=== PATIENT | female | born 1975 | race Caucasian/White ===

== ENCOUNTER 2020-10-25 13:09 | Outpatient (REF) | payer OTHER, SELFPAY | END 2020-10-25 13:10 | disposition home or self-care (01) | LOC: HO.LAB 13:09 | PROVIDERS: Visit Provider Internal Medicine | DX: Z20.828 Contact with and (suspected) exposure to other viral communicable diseases (principal) | CPT/HCPCS: C9803; U0003 ==

== ENCOUNTER → 2021-01-23 11:09 | Outpatient (BNVA) | payer OTHER, SELFPAY | PROVIDERS: PCP Nurse Practitioner; Visit Provider Surgery Vascular Surgery | DX: I83.11 Varicose veins of right lower extremity with inflammation (principal) | CPT/HCPCS: 99212 ==

== ENCOUNTER 2021-02-07 08:12 | Outpatient (REF) | payer OTHER, SELFPAY ==
--- NOTE | ~2021-02-07 | US_ITS ---
EXAMINATION: RIGHT and LEFT LOWER EXTREMITY VENOUS ULTRASOUND (Reflux Exam) CLINICAL INDICATION: Right lower extremity varicose veins and inflammation COMPARISON: None. TECHNIQUE: Color flow triplex imaging and compression Doppler was performed to evaluate both the deep and the superficial systems bilaterally. To evaluate the superficial system, the examination was performed in the upright position. Color-flow Doppler ultrasound and compression ultrasound were utilized. In addition, maneuvers were utilized to demonstrate reflux. FINDINGS: 1. DEEP VENOUS ULTRASOUND OF THE RIGHT LOWER EXTREMITY: Respiratory variation, normal compression and augmented flow are noted in the right common femoral vein as well as the right popliteal vein and there is no evidence of deep venous thrombosis at these locations. There is no evidence of reflux in the deep system in either the common femoral vein or the popliteal vein. There is no evidence of a Carolina's cyst. 2. SUPERFICIAL ULTRASOUND WITH DOPPLER OF RIGHT LOWER EXTREMITY: The right great saphenous vein at the saphenofemoral junction measures 7 mm, at the mid thigh 2 mm, [id number] 3 mm, [id number] 2 mm, at mid calf 1 mm and at the ankle measures 2 mm. There is right greater saphenous vein reflux seen at the knee only measuring 2 seconds. There is an accessory lateral greater saphenous vein that measures 2 mm and does not demonstrate reflux. The right small saphenous vein measures 2 mm and shows no reflux. There is a [employer] in the proximal calf that measures 3 mm and at demonstrates 2.8 seconds reflux. There are small varicosities in the right distal posterior thigh that demonstrate reflux, maximum 2.3 seconds.. 3. DEEP VENOUS ULTRASOUND OF THE LEFT LOWER EXTREMITY: Respiratory variation, normal compression and augmented flow are noted in the left common femoral vein as well as the left popliteal vein and there is no evidence of deep venous thrombosis at these locations. There is no evidence of reflux in the deep system in either the common femoral vein or the popliteal vein. . There is no evidence of a [place]'s cyst. 4. SUPERFICIAL ULTRASOUND WITH DOPPLER OF LEFT LOWER EXTREMITY: Left great saphenous vein at the saphenofemoral junction measures 6 mm, at the mid thigh 1 mm, [id number] 1 mm, [id number] 2 mm, at mid calf 1 mm and at the ankle measures 1 mm. There is left greater saphenous vein reflux seen at the saphenofemoral junction only measuring 3.2 seconds. There is an accessory lateral greater saphenous vein measures 2 mm and does not demonstrate reflux. The left small saphenous vein measures 1-2 mm and shows no reflux. Is a [employer] in the proximal calf that measures 2 mm and does not demonstrate reflux. US/US venous duplex LE BI IMPRESSION: 1. No evidence of reflux or thrombus in the common femoral veins or popliteal veins bilaterally. 2. Bilateral greater saphenous vein reflux measuring 2 seconds at the right knee and 3.2 seconds at the left saphenofemoral junction. There are varicosities in the right distal posterior thigh that demonstrate reflux. [employer] in the right proximal calf that demonstrates reflux.
== END 2021-02-07 08:13 | disposition home or self-care (01) ==
LOC: HO.US 08:12
PROVIDERS: Visit Provider Surgery Vascular Surgery
DX: I83.893 Varicose veins of bilateral lower extremities with other complications (principal)
CPT/HCPCS: 93970

== ENCOUNTER → 2021-02-20 09:43 | Outpatient (BNVA) | payer OTHER, SELFPAY | PROVIDERS: PCP Nurse Practitioner; Visit Provider Surgery Vascular Surgery | DX: I83.11 Varicose veins of right lower extremity with inflammation (principal) | CPT/HCPCS: 99212 ==

== ENCOUNTER → 2021-03-16 07:44 | Outpatient (BNVA) | payer OTHER, SELFPAY | PROVIDERS: PCP Nurse Practitioner; Visit Provider Surgery Vascular Surgery | DX: I83.11 Varicose veins of right lower extremity with inflammation (principal) | CPT/HCPCS: 37765 ==

== ENCOUNTER → 2021-03-27 09:42 | Outpatient (BNVA) | payer OTHER, SELFPAY | PROVIDERS: PCP Nurse Practitioner; Visit Provider Surgery Vascular Surgery | DX: I83.11 Varicose veins of right lower extremity with inflammation (principal) | CPT/HCPCS: 99212 ==

== ENCOUNTER 2021-08-02 07:14 | Outpatient (REF) | payer OTHER, SELFPAY ==
--- NOTE | ~2021-08-02 | XR_ITS ---
EXAMINATION: XR BOTH KNEES AP STANDING XR RIGHT KNEE, 2 VIEWS CLINICAL INFORMATION: Pain. COMPARISON: Knee radiographs dated 11/18/2019. TECHNIQUE: Standing AP view of both knees and lateral and sunrise views of the right knee. FINDINGS: Right Knee: Mild tricompartmental joint space narrowing with marginal osteophytes and chondrocalcinosis, similar when compared to the prior examination. No acute fracture or dislocation. No new osseous erosion. No significant joint effusion. Left Knee: Mild medial compartment joint space narrowing with tiny marginal osteophytes, unchanged. XR/XR knee RT 2V IMPRESSION: RIGHT KNEE: Mild tricompartmental osteoarthritis and chondrocalcinosis, unchanged. LEFT KNEE: Mild medial compartment osteoarthritis, unchanged.
--- NOTE | ~2021-08-02 | XR_ITS ---
EXAMINATION: XR BOTH KNEES AP STANDING XR RIGHT KNEE, 2 VIEWS CLINICAL INFORMATION: Pain. COMPARISON: Knee radiographs dated 11/18/2019. TECHNIQUE: Standing AP view of both knees and lateral and sunrise views of the right knee. FINDINGS: Right Knee: Mild tricompartmental joint space narrowing with marginal osteophytes and chondrocalcinosis, similar when compared to the prior examination. No acute fracture or dislocation. No new osseous erosion. No significant joint effusion. Left Knee: Mild medial compartment joint space narrowing with tiny marginal osteophytes, unchanged. XR/XR knee standing BI IMPRESSION: RIGHT KNEE: Mild tricompartmental osteoarthritis and chondrocalcinosis, unchanged. LEFT KNEE: Mild medial compartment osteoarthritis, unchanged.
== END 2021-08-02 07:15 | disposition home or self-care (01) ==
LOC: HO.HOSX 07:14
PROVIDERS: Visit Provider Physician Assistant
DX: M11.20 Other chondrocalcinosis, unspecified site (principal); M17.11 Unilateral primary osteoarthritis, right knee
CPT/HCPCS: 20610; 73560; 73565; 99202; J1040

== ENCOUNTER 2022-05-02 06:25 | Outpatient (REF) | payer OTHER, SELFPAY ==
--- NOTE | ~2022-05-02 | XR_ITS ---
EXAMINATION: KNEE X-RAY CLINICAL INFORMATION: Pain COMPARISON: Previous x-ray July 2021 TECHNIQUE: Standing AP view of both knees and lateral and sunrise view of the left knee FINDINGS: Left: Bone alignment is normal. No fracture or dislocation is seen. There is slight lateral tilt to the patella on the sunrise view. There are small osteophytes at the patellofemoral and medial femoral tibial joints. There is no joint effusion. Standing AP view of the right knee demonstrates chondrocalcinosis. XR/XR knee standing BI IMPRESSION: Left knee: Small osteophytes at the patellofemoral and medial femoral tibial joints with slight lateral tilt of the patella. Right knee: Extensive chondrocalcinosis.
--- NOTE | ~2022-05-02 | XR_ITS ---
EXAMINATION: KNEE X-RAY CLINICAL INFORMATION: Pain COMPARISON: Previous x-ray July 2021 TECHNIQUE: Standing AP view of both knees and lateral and sunrise view of the left knee FINDINGS: Left: Bone alignment is normal. No fracture or dislocation is seen. There is slight lateral tilt to the patella on the sunrise view. There are small osteophytes at the patellofemoral and medial femoral tibial joints. There is no joint effusion. Standing AP view of the right knee demonstrates chondrocalcinosis. XR/XR knee LT 2V IMPRESSION: Left knee: Small osteophytes at the patellofemoral and medial femoral tibial joints with slight lateral tilt of the patella. Right knee: Extensive chondrocalcinosis.
== END 2022-05-02 06:26 | disposition home or self-care (01) ==
LOC: HO.HOSX 06:25
PROVIDERS: Visit Provider Orthopaedic Surgery
DX: M25.562 Pain in left knee (principal); M17.12 Unilateral primary osteoarthritis, left knee
CPT/HCPCS: 73560; 73565; 99212